=== PATIENT | female | born 1985 | race Caucasian/White ===

== ENCOUNTER 2016-09-04 17:38 | Emergency (ER) | payer MEDICAID ==
[~2016-09-04] VITALS: Ht 154.9 cm; Wt 86.0 kg
[~2016-09-04 17:38] MED LIST: FERR256T PO; IBUP-1649 PO
[2016-09-04 18:50] VITALS: BP 131/83
== END 2016-09-05 05:30 | disposition left against medical advice (07) ==
LOC: ER 09-05 05:26
DX: Z53.21 Procedure and treatment not carried out due to patient leaving prior to being seen by health care provider (principal)
CPT/HCPCS: J7030

== ENCOUNTER 2017-06-11 06:18 | Emergency (ER) | payer MEDICAID, OTHER ==
[~2017-06-11] VITALS: Ht 162.6 cm; Wt 89.1 kg
[2017-06-11] MEDS ORDERED: ACETAMINOPHEN 325MG TABLET PO ONE (10:30)
[2017-06-11 10:44] LABS: CLARITY URINE CLOUDY (CLEAR); COLOR URINE YELLOW (YELLOW); KETONES URINE NEGATIVE (NEGATIVE); LEUKOCYTE ESTERASE URINE 3+ (NEGATIVE); NITRITE URINE NEGATIVE (NEGATIVE); OCCULT BLOOD URINE 3+ (NEGATIVE); PROTEIN URINE 1+ (NEGATIVE); SPECIFIC GRAVITY URINE 1.024 (1.005-1.030); UROBILINOGEN URINE 0.2 E.U./dL (0.2-1.0)
[2017-06-11 10:44] LABS: BASOPHILS % 0.8 % (0.0-2.0); EOSINOPHILS % 0.9 % (0.0-5.0); HEMOGLOBIN. 12.2 g/dL (12.0-16.0); LYMPHOCYTES % 17.9 % (20.0-50.0); MEAN CORPUSCULAR HEMOGLOBIN 27.7 pg (28.0-32.0); MEAN CORPUSCULAR VOLUME 84.3 fL (81.0-99.0); MEAN PLATELET VOLUME 8.1 fl (7.4-10.4); NEUTROPHILS % 75.4 % (40.0-76.0); PLATELET 344 x1000/uL (130-400); RED BLOOD CELL COUNT 4.39 mill/uL (4.2-5.4); RED CELL DISTRIBUTION WIDTH 13.9 % (11.6-14.6)
[2017-06-11 10:53] LABS: CHLORIDE 105 mEq/L (98-107)
[2017-06-11 12:35] VITALS: BP 109/66
== END 2017-06-11 13:00 | disposition home or self-care (01) ==
LOC: ER 06:18
DX: N12 Tubulo-interstitial nephritis, not specified as acute or chronic (principal); R03.0 Elevated blood-pressure reading, without diagnosis of hypertension
CPT/HCPCS: 36415; 80048; 81003; 81025; 85025; 87077; 87086; 87186; 99284

== ENCOUNTER 2019-02-10 04:20 | Emergency (ER) | payer MEDICAID, OTHER ==
[~2019-02-10] VITALS: Ht 154.9 cm; Wt 84.0 kg
[~2019-02-10 04:20] MED LIST changes: -IBUP-1649 PO; +IBUP-2077 PO
[2019-02-10] MEDS ORDERED: KETOROLAC 60MG/2ML VIAL IM ONE (04:45)
[2019-02-10 07:14] LABS: CLARITY URINE TURBID (CLEAR); COLOR URINE YELLOW (YELLOW); KETONES URINE NEGATIVE (NEGATIVE); LEUKOCYTE ESTERASE URINE 3+ (NEGATIVE); NITRITE URINE POSITIVE (NEGATIVE); OCCULT BLOOD URINE 2+ (NEGATIVE); PH URINE 5.5 (4.5-8.0); PROTEIN URINE 2+ (NEGATIVE); SPECIFIC GRAVITY URINE 1.019 (1.005-1.030); UROBILINOGEN URINE 0.2 E.U./dL (0.2-1.0)
[2019-02-10] MEDS ORDERED: ACETAMINOPHEN 325MG TABLET PO STA (07:31)
[2019-02-10] MEDS ORDERED: CEFTRIAXONE SODIUM 1 G/VIAL IM ONE (07:45)
[2019-02-10] MEDS ORDERED: LIDOCAINE HCL/PF 1% 10 MG/ML 5ML VIAL IJ ONE (07:45)
[2019-02-10 08:45] VITALS: BP 102/56
== END 2019-02-10 08:45 | disposition home or self-care (01) ==
LOC: ER 04:20
DX: N39.0 Urinary tract infection, site not specified (principal); Z88.5 Allergy status to narcotic agent; Z98.890 Other specified postprocedural states
CPT/HCPCS: 81003; 87077; 87086; 87186; 96372; 99283; J0696; J1885; J3490; Z7610

== ENCOUNTER 2020-03-26 04:59 | Emergency (ER) | payer BC, MEDICAID ==
[~2020-03-26] VITALS: Ht 154.9 cm; Wt 85.0 kg
[2020-03-26] MEDS ORDERED: ACETAMINOPHEN 325MG TABLET PO ONE (06:45)
[2020-03-26 07:56] LABS: BASOPHILS % 0.6 % (0.0-2.0); EOSINOPHILS % 0.1 % (0.0-5.0); HEMATOCRIT. 39.5 % (36.0-48.0); HEMOGLOBIN. 13.5 g/dL (12.0-16.0); LYMPHOCYTES % 11.4 % (20.0-50.0); MEAN CORPUSCULAR VOLUME 87.7 fL (81.0-99.0); MEAN PLATELET VOLUME 9.1 fl (7.4-10.4); MONOCYTES % 4.3 % (2.0-8.0); NEUTROPHILS % 83.6 % (40.0-76.0); PLATELET 235 x1000/uL (130-400); RED BLOOD CELL COUNT 4.51 mill/uL (4.2-5.4); RED CELL DISTRIBUTION WIDTH 13.5 % (11.6-14.6)
[2020-03-26 07:57] LABS: COLOR URINE YELLOW (YELLOW); KETONES URINE NEGATIVE (NEGATIVE); LEUKOCYTE ESTERASE URINE NEGATIVE (NEGATIVE); NITRITE URINE NEGATIVE (NEGATIVE); OCCULT BLOOD URINE NEGATIVE (NEGATIVE); PH URINE 5.5 (4.5-8.0); PROTEIN URINE NEGATIVE (NEGATIVE); SPECIFIC GRAVITY URINE 1.031 (1.005-1.030); UROBILINOGEN URINE 0.2 E.U./dL (0.2-1.0)
[2020-03-26 07:58] LABS: CLARITY URINE CLEAR (CLEAR)
[2020-03-26 08:05] LABS: PROTHROMBIN TIME 10.1 sec (9.6-11.0)
[2020-03-26] MEDS ORDERED: SODIUM CHLORIDE 0.9% 500 ML IV ONE ×2 (08:30→09:15)
[2020-03-26 08:46] LABS: CHLORIDE 107 mEq/L (98-107); HCG SCREEN NEGATIVE
[2020-03-26] MEDS ORDERED: KETOROLAC 15MG/ML VIAL IV ONE (09:15)
[2020-03-26] MEDS ORDERED: ONDANSETRON HCL 4MG/2ML INJ IV ONE (12:15)
[2020-03-26 14:00] VITALS: BP 99/57
== END 2020-03-26 14:20 | disposition home or self-care (01) ==
LOC: ER 04:59
DX: U07.1 COVID-19 (principal); Z88.5 Allergy status to narcotic agent
CPT/HCPCS: 36415; 71045; 80053; 81003; 83605; 84145; 84484; 84703; 85025; 85610; 87040; 87086; 87635; 93005; 96361; 96374; 96375; 99285; C9803; J1885; J2405

== ENCOUNTER 2022-04-12 18:07 | Emergency (ER) | payer BC, MEDICAID ==
[~2022-04-12] VITALS: Ht 154.9 cm; Wt 90.0 kg
[2022-04-12 18:11] VITALS: BP 132/75
[2022-04-12 20:52] LABS: BASOPHILS % 0.5 % (0.0-2.0); EOSINOPHILS % 1.8 % (0.0-5.0); HEMATOCRIT. 38.9 % (36.0-48.0); HEMOGLOBIN. 13.1 g/dL (12.0-16.0); LYMPHOCYTES % 23.5 % (20.0-50.0); MEAN CORPUSCULAR HEMOGLOBIN 29.7 pg (28.0-32.0); MEAN CORPUSCULAR VOLUME 87.9 fL (81.0-99.0); MEAN PLATELET VOLUME 8.5 fl (7.4-10.4); MONOCYTES % 5.9 % (2.0-8.0); NEUTROPHILS % 68.3 % (40.0-76.0); PLATELET 395 x1000/uL (130-400); RED BLOOD CELL COUNT 4.43 mill/uL (4.2-5.4); RED CELL DISTRIBUTION WIDTH 13.8 % (11.6-14.6)
[2022-04-12 21:01] LABS: CHLORIDE 104 mEq/L (98-107)
[2022-04-12 21:05] LABS: HCG SCREEN NEGATIVE
[2022-04-13 01:09] LABS: CLARITY URINE CLOUDY (CLEAR); KETONES URINE NEGATIVE (NEGATIVE); LEUKOCYTE ESTERASE URINE NEGATIVE (NEGATIVE); NITRITE URINE NEGATIVE (NEGATIVE); OCCULT BLOOD URINE NEGATIVE (NEGATIVE); PH URINE 6.5 (4.5-8.0); PROTEIN URINE NEGATIVE (NEGATIVE); SPECIFIC GRAVITY URINE 1.023 (1.005-1.030); UROBILINOGEN URINE 0.2 E.U./dL (0.2-1.0)
[2022-04-13 01:44] LABS: COLOR URINE YELLOW (YELLOW)
[2022-04-13] MEDS ORDERED: IBUP-2029 MT (03:14)
[2022-04-13] MEDS ORDERED: HYDR-4001 MT (03:14)
== END 2022-04-13 03:45 | disposition home or self-care (01) ==
LOC: ER 18:15
DX: K80.20 Calculus of gallbladder without cholecystitis without obstruction (principal); N13.2 Hydronephrosis with renal and ureteral calculous obstruction; Z98.890 Other specified postprocedural states; Z88.8 Allergy status to other drugs, medicaments and biological substances
CPT/HCPCS: 36415; 76705; 80053; 81003; 81025; 84703; 85025; 93005; 99285

== ENCOUNTER 2022-09-28 21:06 | Emergency (ER) | payer BC, MEDICAID ==
[~2022-09-28] VITALS: Ht 154.9 cm; Wt 91.0 kg
[~2022-09-28 21:06] MED LIST changes: +HYDR-4001 MT; +IBUP-2029 MT
[2022-09-28 21:56] LABS: CLARITY URINE CLOUDY (CLEAR); COLOR URINE YELLOW (YELLOW); KETONES URINE NEGATIVE (NEGATIVE); LEUKOCYTE ESTERASE URINE 3+ (NEGATIVE); NITRITE URINE NEGATIVE (NEGATIVE); OCCULT BLOOD URINE 1+ (NEGATIVE); PROTEIN URINE 1+ (NEGATIVE); SPECIFIC GRAVITY URINE 1.013 (1.005-1.030)
[2022-09-28] MEDS ORDERED: CIPR-263 MT (22:59)
[2022-09-28] MEDS ORDERED: PHEN-815 MT (23:01)
[2022-09-28 23:15] VITALS: BP 131/88
[2022-09-28] MEDS ORDERED: KETOROLAC 60MG/2ML VIAL IM ONE (23:15)
== END 2022-09-28 23:15 | disposition home or self-care (01) ==
LOC: ER 21:06
DX: N12 Tubulo-interstitial nephritis, not specified as acute or chronic (principal); Z98.890 Other specified postprocedural states; Z79.899 Other long term (current) drug therapy
CPT/HCPCS: 81003; 81025; 87077; 87086; 87186; 96372; 99283; J1885; Z7610

== ENCOUNTER 2023-11-16 14:50 | Emergency (ER) | payer BC, MEDICAID ==
[~2023-11-16] VITALS: Ht 154.9 cm; Wt 90.7 kg
[~2023-11-16 14:50] MED LIST changes: +CIPR-263 MT; +PHEN-815 MT
[2023-11-16 14:59] VITALS: O2SAT 99
[2023-11-16 15:01] VITALS: TEMP 98.4; O2SAT 98
[2023-11-16 16:09] LABS: BASOPHILS % 0.7 % (0.0-2.0); EOSINOPHILS % 2.6 % (0.0-5.0); HEMATOCRIT. 38.1 % (36.0-48.0); HEMOGLOBIN. 12.7 g/dL (12.0-16.0); LYMPHOCYTES % 22.2 % (20.0-50.0); MEAN CORPUSCULAR HEMOGLOBIN 29.2 pg (28.0-32.0); MEAN CORPUSCULAR HGB CONC 33.4 g/dL (31.0-37.0); MEAN CORPUSCULAR VOLUME 87.4 fL (81.0-99.0); MEAN PLATELET VOLUME 8.3 fl (7.4-10.4); MONOCYTES % 5.7 % (2.0-8.0); NEUTROPHILS % 68.8 % (40.0-76.0); PLATELET 385 x1000/uL (130-400); RED BLOOD CELL COUNT 4.35 mill/uL (4.2-5.4); RED CELL DISTRIBUTION WIDTH 14.1 % (11.6-14.6)
[2023-11-16] MEDS: SODIUM CHLORIDE 0.9% 1,000 ML IV ONE (16:10)
[2023-11-16] MEDS: KETOROLAC 30MG/ML VIAL IV STA (16:10)
[2023-11-16 16:13] LABS: CARBON DIOXIDE 28 mEq/L (21-32); CHLORIDE 102 mEq/L (98-107); SODIUM 137 mEq/L (136-145)
[2023-11-16 16:14] LABS: CALCIUM 9.5 mg/dL (8.7-10.4)
[2023-11-16 16:17] LABS: INR 0.9; PROTHROMBIN TIME 10.4 sec (9.6-11.0)
[2023-11-16 16:18] LABS: CREATININE 0.7 mg/dL (0.6-1.0); GLUCOSE 89 mg/dL (70-105)
[2023-11-16 16:19] LABS: UREA NITROGEN BLOOD 9 mg/dL (9-23)
[2023-11-16 16:20] LABS: HCG SCREEN NEGATIVE
[2023-11-16 16:27] LABS: CLARITY URINE CLEAR (CLEAR); COLOR URINE YELLOW (YELLOW); GLUCOSE URINE NEGATIVE (NEGATIVE); KETONES URINE NEGATIVE (NEGATIVE); LEUKOCYTE ESTERASE URINE 1+ (NEGATIVE); NITRITE URINE NEGATIVE (NEGATIVE); OCCULT BLOOD URINE TRACE (NEGATIVE); PH URINE 6.5 (4.5-8.0); PROTEIN URINE NEGATIVE (NEGATIVE); SPECIFIC GRAVITY URINE 1.005 (1.005-1.030); UROBILINOGEN URINE 0.2 E.U./dL (0.2-1.0)
[2023-11-16 16:53] LABS: BACTERIA URINE TRACE; RBC URINE 0-2 /hpf (0-2); SQUAMOUS EPITHELIAL CELL URINE FEW /lpf (RARE/1+)
[2023-11-16] MEDS: ACETAMINOPHEN 500MG TABLET PO ONE (18:11)
[2023-11-16] MEDS ORDERED: SULF1TAB48 MT (18:17)
[2023-11-16] MEDS ORDERED: LIDO700A15 TP (18:17)
[2023-11-16 18:40] VITALS: BP 133/90; PULSE 80; RESP 16
[2023-11-16] MEDS ORDERED: IOHEXOL-300 100 ML BOTTLE ONE (23:51)
== END 2023-11-16 18:55 | disposition home or self-care (01) ==
LOC: ER 14:58
DX: R10.9 Unspecified abdominal pain (principal); Z79.899 Other long term (current) drug therapy; Z98.890 Other specified postprocedural states; Z48.01 Encounter for change or removal of surgical wound dressing
CPT/HCPCS: 80048; 81003; 84703; 85025; 85610; 36415; 74177; 96361; 96374; 99285; Q9967; J1885; J7030; Z7610